=== PATIENT | female | born 1980 | race American Indian/Alaskan Native ===

== ENCOUNTER 2018-02-11 14:59 | Emergency (ER) | payer SELFPAY ==
[2018-02-11] MEDS ORDERED: ZOFRAN ONE (15:29)
--- NOTE | 2018-02-11 15:29 | Emergency Department Report ---
Stated Complaint: VOMITING/FEELING FAINT - HPI History of Present Illness: Ms. Hickey is a 37-year-old with a history of hypertension. After a night of drinking alcohol, she awakened with headache and abdominal pain. She vomited over 15 times. She arrived via EMS. She is concerned about her blood pressure. She was unable to tolerate her antihypertensive medications. I obtained hx from EMS. I initated screening orders. MSE screening note: Focused history and physical exam performed. Due to findings the following was ordered: ED Disposition for MSE Condition: Stable
[2018-02-11] MEDS ORDERED: ZOFRAN IV ONE ×2 (15:42→17:10)
[2018-02-11] MEDS: PROTONIX IV ONE ×2 (16:18→18:06)
[2018-02-11 17:08] VITALS: BP 150/87
[2018-02-11] MEDS ORDERED: MORPHINE IV ONE (17:10)
[2018-02-11] MEDS ORDERED: NACL 0.9% 1000 ML 1,000 ML IV ONE (17:10)
[2018-02-11] MEDS ORDERED: LOMOTIL PO ONE (17:11)
--- NOTE | 2018-02-11 17:17 | Emergency Department Report ---
HPI - General Chief Complaint: Nausea/Vomiting/Diarrhea Time Seen by Provider: 02/11/18 16:43 - HPI HPI: Room 4 The patient is a 37-year-old female presenting with chief complaint of nausea vomiting diarrhea. The patient says she went to sleep last night usual state of health this morning upon waking noticed a frontal headache and suprapubic abdominal pain. Patient states she began having nausea vomiting diarrhea. Patient denies any recent antibiotic use or sick contacts. Patient denies any preceding trauma. Patient denies fever or dysuria. Patient states she is currently on her cycle and this is the normal time. Patient admits to having 2 margaritas last night. The patient gives her pain a score of 10/10 Location: [See above] Duration: One day Quality: Pain Severity: 10/10 Modifying factors: [see above] Context: [see above] Mode of transportation: [not driving] ED Past Medical Hx - Past Medical History Hx Hypertension: Yes - Surgical History Additional Surgical History: tubal ligation - Family History Family history: no significant - Social History Smoking Status: Former Smoker (none 1 month) Substance Use Type: None (denies illicit drug use), Alcohol (occasional) - Medications Home Medications: Home Medications Medication Instructions Recorded Confirmed Last Taken Type Ciprofloxacin HCl [Cipro] 500 mg PO BID #6 tablet 02/11/18 Unknown Rx Promethazine [Phenergan TAB] 25 mg PO Q6HR PRN #20 tab 02/11/18 Unknown Rx Promethazine [Phenergan] 25 mg MN Q6HR PRN #5 supp.rect 02/11/18 Unknown Rx ED Review of Systems ROS: Stated complaint: VOMITING/FEELING FAINT Other details as noted in HPI Constitutional: denies: fever Gastrointestinal: abdominal pain, nausea, vomiting, diarrhea Genitourinary: denies: dysuria, abnormal menses Neurological: headache Physical Exam - Physical Exam Vital Signs: Vital Signs 02/11/18 02/11/18 15:39 17:07 Temperature 97.6 F Pulse Rate 69 68 Respiratory 18 18 Rate Blood Pressure 171/97 150/87 [Right] O2 Sat by Pulse 98 100 Oximetry Physical Exam: GENERAL: The patient is well-developed well-nourished female on a stretcher. In mild discomfort. [] HEENT: Normocephalic. Atraumatic. Extraocular motions are intact. Patient has moist mucous membranes. NECK: Supple. No meningitic signs are noted. Trachea midline CHEST/LUNGS: Clear to auscultation. There is no respiratory distress noted. HEART/CARDIOVASCULAR: Regular. There is no tachycardia. There is no gallop rub or murmur. ABDOMEN: Abdomen is soft, with diffuse tenderness to palpation. Patient has normal bowel sounds. There is no abdominal distention. SKIN: There is no rash. There is no edema. There is no diaphoresis. NEURO: The patient is awake, alert, and oriented. The patient is cooperative. The patient has no focal neurologic deficits. The patient has normal speech. Cranial nerves II through XII grossly intact, no drift MUSCULOSKELETAL: There is no evidence of acute injury. ED Course Vital Signs 02/11/18 02/11/18 15:39 17:07 Temperature 97.6 F Pulse Rate 69 68 Respiratory 18 18 Rate Blood Pressure 171/97 150/87 [Right] O2 Sat by Pulse 98 100 Oximetry ED Medical Decision Making - Lab Data Result diagrams: 02/11/18 16:58 02/11/18 16:58 Laboratory Tests 02/11/18 02/11/18 02/11/18 16:58 16:58 16:58 WBC 8.3 RBC 4.27 Hgb 12.2 Hct 38.2 MCV 89 MCH 29 MCHC 32 RDW 15.5 H Plt Count 235 Lymph % (Auto) 8.3 L Kern % (Auto) 1.8 Eos % (Auto) 0.0 Baso % (Auto) 0.3 Lymph # 0.7 L Kern # 0.2 Eos # 0.0 Baso # 0.0 Seg Neutrophils % 89.6 H Seg Neutrophils # 7.5 Sodium 143 Potassium 3.8 Chloride 103.8 Carbon Dioxide 24 Anion Gap 19 BUN 5 L Creatinine 0.5 L Estimated GFR > 60 BUN/Creatinine Ratio 10 Glucose 97 Calcium 8.4 Total Bilirubin < 0.20 AST 18 ALT 11 Alkaline Phosphatase 54 Total Protein 8.3 H Albumin 4.5 Albumin/Globulin Ratio 1.2 Lipase 16 HCG, Qual Urine Color Urine Turbidity Urine pH Ur Specific [place] Urine Protein Urine Glucose (UA) Urine Ketones Urine Blood Urine Nitrite Urine Bilirubin Urine Urobilinogen Ur Leukocyte Esterase Urine WBC (Auto) Urine RBC (Auto) U Epithel Cells (Auto) Urine Mucus Plasma/Serum Alcohol 0.09 H 02/11/18 02/11/18 16:58 18:22 WBC RBC Hgb Hct MCV MCH MCHC RDW Plt Count Lymph % (Auto) Kern % (Auto) Eos % (Auto) Baso % (Auto) Lymph # Kern # Eos # Baso # Seg Neutrophils % Seg Neutrophils # Sodium Potassium Chloride Carbon Dioxide Anion Gap BUN Creatinine Estimated GFR BUN/Creatinine Ratio Glucose Calcium Total Bilirubin AST ALT Alkaline Phosphatase Total Protein Albumin Albumin/Globulin Ratio Lipase HCG, Qual Negative Urine Color Yellow Urine Turbidity Clear Urine pH 7.0 Ur Specific [place] 1.028 Urine Protein 30 mg/dl Urine Glucose (UA) 50 Urine Ketones Neg Urine Blood Lg Urine Nitrite Neg Urine Bilirubin Neg Urine Urobilinogen < 2.0 Ur Leukocyte Esterase Tr Urine WBC (Auto) 10.0 H Urine RBC (Auto) > 182.0 U Epithel Cells (Auto) 3.0 Urine Mucus Few Plasma/Serum Alcohol - Radiology Data Radiology results: report reviewed (CT head, CT abdomen and pelvis), image reviewed (CT head, CT abdomen and pelvis) [address] [address] Cat Scan Report Signed Patient: WILL PECK MR#: [id number] : 1980 Acct:[id number] Age/Sex: 37 / F ADM Date: 02/11/18 Loc: ED Attending Dr: Ordering Physician: CJ RUBALCAVA MD Date of Service: 02/11/18 Procedure(s): CT head/brain wo con Accession Number(s): [id number] cc: CJ RUBALCAVA MD FINAL REPORT PROCEDURE: CT HEAD/BRAIN WO CON TECHNIQUE: Computerized tomography of the head was performed without contrast material. HISTORY: headache nausea vomiting COMPARISON: No prior studies are available for comparison. FINDINGS: Skull and scalp: Normal. Paranasal sinuses: Normal. Ventricles and subarachnoid spaces: Normal. Cerebrum: No evidence of hemorrhage, acute infarction or mass . Cerebellum and brainstem: No evidence of hemorrhage, acute infarction or mass. Vasculature: Normal. Comments: None. IMPRESSION: Normal Examination Transcribed By: [facility] – [place] Dictated By: ROB BEASLEY Electronically Authenticated By: ROB BEASLEY Signed Date/Time: 02/11/181738 DD/ 38 TD/TT: 02/11/181738 [address] [place] [address] Cat Scan Report Signed Patient: WILL PECK MR#: [id number] : 1980 Acct:[id number] Age/Sex: 37 / F ADM Date: 02/11/18 Loc: ED Attending Dr: Ordering Physician: CJ RUBALCAVA MD Date of Service: 02/11/18 Procedure(s): CT abdomen pelvis w con Accession Number(s): [id number] cc: CJ RUBALCAVA MD FINAL REPORT PROCEDURE: CT ABDOMEN PELVIS W CON TECHNIQUE: Computerized axial tomography of the abdomen and pelvis was performed after the IV injection of iodinated nonionic contrast. HISTORY: diffuse abdominal pain, nausea vomiting COMPARISON: No prior studies are available for comparison. FINDINGS: Liver demonstrates a 7 millimeter x 3 millimeter hypodense lesion segment 7 right lobe in the subdiaphragmatic region. And bilateral adrenal glands are within normal limits. Bilateral kidneys demonstrate normal size without hydronephrosis. Left kidney demonstrates a focal scar in the midpole. Urinary bladder is normally distended with normal outlines. Aorta is of normal caliber. There is no free air in the peritoneal cavity. Minimal degree of free fluid is noted in the pelvic cavity. Gallbladder is unremarkable. Small bowel loops are within normal limits. Appendix is normal. An uncomplicated fat containing supra umbilical hernia is noted measuring 3 centimeters spleen demonstrates multiple hypodense lesions largest measuring above 2 centimeters. There is no evidence of any very splenic fluid. IMPRESSION: Multiple hypodense lesions of spleen are of nonspecific nature and may represent inflammatory versus neoplastic etiology. Doppler evaluation is recommended. A single small hypodense lesion of right lobe liver is of nonspecific nature. Transcribed By: [facility] – [place], [place] Dictated By: ROB BEASLEY Electronically Authenticated By: ROB BEASLEY Signed Date/Time: 02/11/181831 DD/ 31 TD/TT: 02/11/181831 - Differential Diagnosis gastroenteritis, ICH, partial small bowel obstruction Critical care attestation.: If time is entered above; I have spent that time in minutes in the direct care of this critically ill patient, excluding procedure time. ED Disposition Clinical Impression: Alcohol intoxication, Splenic lesion, UTI (urinary tract infection) Disposition: DC-01 TO HOME OR SELFCARE Is pt being admited?: No Does the pt Need Aspirin: No Condition: Stable Instructions: Alcohol Intoxication (ED), At-Risk Alcohol Use (ED) Additional Instructions: Return to the emergency department immediately should you develop worsening symptoms, fever, inability to tolerate food or liquid or any other concerns. Prescriptions: Ciprofloxacin HCl [Cipro] 500 mg PO BID #6 tablet Promethazine [Phenergan TAB] 25 mg PO Q6HR PRN #20 tab PRN Reason: Nausea Promethazine [Phenergan] 25 mg MN Q6HR PRN #5 supp.rect PRN Reason: Vomiting Referrals: RUBI RUTLEDGE MD [Staff Physician] - 3-5 Days (Dr. Rutledge is a nut grinder. Please follow-up with him and your primary physician for further evaluation of your spleen) VERA ESCOBAR MD [Primary Care Provider] - 3-5 Days (Dr. Whitney is a primary physician. Please follow-up with him for further evaluation) Time of Disposition: 18:55
[2018-02-11] MEDS ORDERED: NACL ONE (17:20)
[2018-02-11 17:24] LABS: Basophils % (Auto) 0.3 % (0.0-1.8); Hematocrit 38.2 % (30.3-42.9); Hemoglobin 12.2 gm/dl (10.1-14.3); Lymphocytes # (Auto) 0.7 K/mm3 (1.2-5.4); Lymphocytes % (Auto) 8.3 % (13.4-35.0); Mean Corpuscular HGB Conc 32 % (30-34); Mean Corpuscular Hemoglobin 29 pg (28-32); Mean Corpuscular Volume 89 fl (79-97); Monocytes # (Auto) 0.2 K/mm3 (0.0-0.8); Monocytes % (Auto) 1.8 % (0.0-7.3); Platelet Count 235 K/mm3 (140-440); Red Blood Count 4.27 M/mm3 (3.65-5.03); Red Cell Distribution Width 15.5 % (13.2-15.2)
--- NOTE | 2018-02-11 17:44 | Cat Scan Report ---
FINAL REPORT PROCEDURE: CT HEAD/BRAIN WO CON TECHNIQUE: Computerized tomography of the head was performed without contrast material. HISTORY: headache nausea vomiting COMPARISON: No prior studies are available for comparison. FINDINGS: Skull and scalp: Normal. Paranasal sinuses: Normal. Ventricles and subarachnoid spaces: Normal. Cerebrum: No evidence of hemorrhage, acute infarction or mass . Cerebellum and brainstem: No evidence of hemorrhage, acute infarction or mass. Vasculature: Normal. Comments: None. IMPRESSION: Normal Examination
[2018-02-11 17:53] LABS: Alanine Aminotransferase 11 units/L (7-56); Albumin 4.5 g/dL (3.9-5); BUN/Creatinine Ratio 10; Blood Urea Nitrogen 5 mg/dL (7-17); Calcium 8.4 mg/dL (8.4-10.2); Hemolysis Index 8; Lipase 16 units/L (13-60)
--- NOTE | 2018-02-11 18:37 | Cat Scan Report ---
FINAL REPORT PROCEDURE: CT ABDOMEN PELVIS W CON TECHNIQUE: Computerized axial tomography of the abdomen and pelvis was performed after the IV injection of iodinated nonionic contrast. HISTORY: diffuse abdominal pain, nausea vomiting COMPARISON: No prior studies are available for comparison. FINDINGS: Liver demonstrates a 7 millimeter x 3 millimeter hypodense lesion segment 7 right lobe in the subdiaphragmatic region. And bilateral adrenal glands are within normal limits. Bilateral kidneys demonstrate normal size without hydronephrosis. Left kidney demonstrates a focal scar in the midpole. Urinary bladder is normally distended with normal outlines. Aorta is of normal caliber. There is no free air in the peritoneal cavity. Minimal degree of free fluid is noted in the pelvic cavity. Gallbladder is unremarkable. Small bowel loops are within normal limits. Appendix is normal. An uncomplicated fat containing supra umbilical hernia is noted measuring 3 centimeters spleen demonstrates multiple hypodense lesions largest measuring above 2 centimeters. There is no evidence of any very splenic fluid. IMPRESSION: Multiple hypodense lesions of spleen are of nonspecific nature and may represent inflammatory versus neoplastic etiology. Doppler evaluation is recommended. A single small hypodense lesion of right lobe liver is of nonspecific nature.
[2018-02-11 18:39] LABS: Bilirubin,Urine NEG (Negative); Blood,Urine LG (Negative); Color,Urine Yellow (Yellow); Mucus,Urine FEW /HPF; Urobilinogen,Urine < 2.0 mg/dL (<2.0)
[2018-02-11 18:40] LABS: RBC,Urine > 182.0 /HPF (0.0-6.0)
== END 2018-02-11 19:19 | disposition home or self-care (01) ==
LOC: ED 14:59
DX: N39.0 Urinary tract infection, site not specified (principal); D73.89 Other diseases of spleen; I10 Essential (primary) hypertension; F10.129 Alcohol abuse with intoxication, unspecified; Z91.018 Allergy to other foods; Z98.51 Tubal ligation status; Z87.891 Personal history of nicotine dependence
CPT/HCPCS: 36415; 70450; 74177; 80053; 81001; 83690; 84703; 85025; 96361; 96374; 96375; 96376; 99284; C9113; G0480; J2270; J2405; J7030; Q9967; 80320

== ENCOUNTER 2020-11-03 09:58 | Emergency (ER) | payer SELFPAY ==
--- NOTE | 2020-11-03 11:27 | Emergency Department Report ---
ED ENT HPI - General Chief complaint: Sore Throat Stated complaint: SORE THROAT Time Seen by Provider: 11/03/20 10:41 Source: patient Mode of arrival: Ambulatory Limitations: No Limitations - History of Present Illness Initial comments: There is a pleasant 40-year-old female presents emerged department chief complaint of sore throat over the past 2 days. Patient reports she was concerned because her boyfriend was having some painful bumps in his groin and she was concerned she may have gonorrhea. She states she has noticed some white plaque on the tonsils as well as some black and red discoloration. She reports pain is 7 out of 10 aggravated by swallowing with associated swelling of the anterior neck and pain. She denies any known past medical history other than hypertension, denies any current medication use or known allergies to medications. - Related Data Previous Rx's Medication Instructions Recorded Last Taken Type Ciprofloxacin HCl [Cipro] 500 mg PO BID #6 tablet 02/11/18 Unknown Rx Promethazine [Phenergan TAB] 25 mg PO Q6HR PRN #20 tab 02/11/18 Unknown Rx Promethazine [Phenergan] 25 mg OR Q6HR PRN #5 supp.rect 02/11/18 Unknown Rx Amoxicillin [Trimox CAP] 500 mg PO Q8H #30 capsule 11/03/20 Unknown Rx Ibuprofen [Motrin 800 MG tab] 800 mg PO Q8HR #30 tablet 11/03/20 Unknown Rx hydroCHLOROthiazide [HCTZ] 25 mg PO QDAY #30 tablet 11/03/20 Unknown Rx lisinopriL [Zestril TAB] 10 mg PO QDAY #30 tablet 11/03/20 Unknown Rx Allergies Allergy/AdvReac Type Severity Reaction Status Date / Time candy Allergy Unknown Uncoded 11/03/20 10:03 country time lemonade Allergy Swelling Uncoded 11/03/20 10:03 ED Dental HPI - General Chief complaint: Sore Throat Stated complaint: SORE THROAT Time Seen by Provider: 11/03/20 10:41 Source: patient Mode of arrival: Ambulatory Limitations: No Limitations - Related Data Previous Rx's Medication Instructions Recorded Last Taken Type Ciprofloxacin HCl [Cipro] 500 mg PO BID #6 tablet 02/11/18 Unknown Rx Promethazine [Phenergan TAB] 25 mg PO Q6HR PRN #20 tab 03/25/18 Unknown Rx Promethazine [Phenergan] 25 mg OR Q6HR PRN #5 supp.rect 02/11/18 Unknown Rx Amoxicillin [Trimox CAP] 500 mg PO Q8H #30 capsule 11/03/20 Unknown Rx Ibuprofen [Motrin 800 MG tab] 800 mg PO Q8HR #30 tablet 11/03/20 Unknown Rx hydroCHLOROthiazide [HCTZ] 25 mg PO QDAY #30 tablet 11/03/20 Unknown Rx lisinopriL [Zestril TAB] 10 mg PO QDAY #30 tablet 11/03/20 Unknown Rx Allergies Allergy/AdvReac Type Severity Reaction Status Date / Time candy Allergy Unknown Uncoded 11/03/20 10:03 country time lemonade Allergy Swelling Uncoded 11/03/20 10:03 ED Review of Systems ROS: Stated complaint: SORE THROAT Other details as noted in HPI Constitutional: no symptoms reported. denies: chills, fever Eyes: denies: eye pain, eye discharge, vision change ENT: throat pain. denies: ear pain Respiratory: denies: cough, shortness of breath, wheezing Cardiovascular: denies: chest pain, palpitations Endocrine: no symptoms reported Gastrointestinal: denies: abdominal pain, nausea, diarrhea Genitourinary: denies: urgency, dysuria, discharge Musculoskeletal: denies: back pain, joint swelling, arthralgia Skin: denies: rash, lesions Neurological: denies: headache, weakness, paresthesias Psychiatric: denies: anxiety, depression Hematological/Lymphatic: denies: easy bleeding, easy bruising ED Past Medical Hx - Past Medical History Previous Medical History?: Yes Hx Hypertension: Yes - Surgical History Past Surgical History?: Yes Additional Surgical History: tubal ligation - Social History Smoking Status: Former Smoker (none 1 month) Substance Use Type: None (denies illicit drug use), Alcohol (occasional) - Medications Home Medications: Home Medications Medication Instructions Recorded Confirmed Last Taken Type Ciprofloxacin HCl [Cipro] 500 mg PO BID #6 tablet 02/11/18 Unknown Rx Promethazine [Phenergan TAB] 25 mg PO Q6HR PRN #20 tab 02/11/18 Unknown Rx Promethazine [Phenergan] 25 mg OR Q6HR PRN #5 supp.rect 02/11/18 Unknown Rx Amoxicillin [Trimox CAP] 500 mg PO Q8H #30 capsule 11/03/20 Unknown Rx Ibuprofen [Motrin 800 MG tab] 800 mg PO Q8HR #30 tablet 11/03/20 Unknown Rx hydroCHLOROthiazide [HCTZ] 25 mg PO QDAY #30 tablet 11/03/20 Unknown Rx lisinopriL [Zestril TAB] 10 mg PO QDAY #30 tablet 11/03/20 Unknown Rx ED Physical Exam - General Limitations: No Limitations General appearance: alert, in no apparent distress - Head Head exam: Present: atraumatic, normocephalic - Eye Eye exam: Present: normal appearance, PERRL, EOMI Pupils: Present: normal accommodation - ENT ENT exam: Present: normal exam, mucous membranes moist, TM's normal bilaterally. Absent: normal orophraynx (There is plaque to the bilateral tonsils worse on the left. No peritonsillar bulging, retropharyngeal bulging or to elevation. No drooling or dysphonia. The airway is widely patent. No tongue elevation tender anterior cervical lymphadenopathy) - Neck Neck exam: Present: normal inspection, full ROM, lymphadenopathy. Absent: tenderness, meningismus - Respiratory Respiratory exam: Present: normal lung sounds bilaterally. Absent: respiratory distress, wheezes, rales, rhonchi, stridor - Cardiovascular Cardiovascular Exam: Present: regular rate, normal rhythm, normal heart sounds. Absent: systolic murmur, diastolic murmur, rubs, gallop - GI/Abdominal GI/Abdominal exam: Present: soft, normal bowel sounds. Absent: distended, tenderness, guarding, rebound, rigid - Extremities Exam Extremities exam: Present: normal inspection, full ROM, normal capillary refill. Absent: tenderness, calf tenderness - Back Exam Back exam: Present: normal inspection, full ROM. Absent: tenderness, CVA tenderness (R), CVA tenderness (L) - Neurological Exam Neurological exam: Present: alert, oriented X3, CN II-XII intact, normal gait - Psychiatric Psychiatric exam: Present: normal affect, normal mood - Skin Skin exam: Present: warm, dry, intact, normal color. Absent: rash ED Course Vital Signs 11/03/20 11/03/20 10:03 13:03 Temperature 98.8 F Pulse Rate 95 H 99 H Respiratory 20 Rate Blood Pressure 148/105 188/117 [Right] O2 Sat by Pulse 98 Oximetry - Reevaluation(s) Reevaluation #1: 11/03/20 11:27 Patient nontoxic in no acute distress. Vital signs are stable. I did perform a strep swab and send a Monospot test off. Patient's airway is patent no sign of abscess or Kiran. ED Medical Decision Making - Medical Decision Making Patient nontoxic in no acute distress. Monospot was negative. Patient Centor criteria was positive 3 of 4 for strep and I will empirically treat her. We did order a strep swab collected and sent to lab however it was lost in transit. The patient was agreeable this plan. We will treat her with anti- inflammatories, amoxicillin and Magic mouthwash and recommended outpatient follow-up with her primary care doctor. There were no complicating features including no peritonsillar bulging, retropharyngeal bulging or television, no drooling or dysphonia. And she was instructed if she develops any of the signs or symptoms to return to the emergency department immediately. Patient verbalized understand the diagnosis, treatment plan and follow-up instructions and all of her questions were answered. - Differential Diagnosis Strep throat, mononucleosis, viral pharyngitis Critical care attestation.: If time is entered above; I have spent that time in minutes in the direct care of this critically ill patient, excluding procedure time. ED Disposition Clinical Impression: Acute tonsillitis Qualifiers: Pharyngitis/tonsillitis etiology: streptococcus Streptococcal tonsillitis recurrence: non-recurrent Qualified Code(s): J03.00 - Acute streptococcal tonsillitis, unspecified Disposition: DC-01 TO HOME OR SELFCARE Is pt being admited?: No Condition: Stable Instructions: Tonsillitis, [id number] Prescriptions: hydroCHLOROthiazide [HCTZ] 25 mg PO QDAY #30 tablet Ibuprofen [Motrin 800 MG tab] 800 mg PO Q8HR #30 tablet Amoxicillin [Trimox CAP] 500 mg PO Q8H #30 capsule lisinopriL [Zestril TAB] 10 mg PO QDAY #30 tablet Referrals: TARA JAMESON MD [Primary Care Provider] - 3-5 Days ARABELLA MORENO MD [Staff Physician] - 3-5 Days Forms: Work/School Release Form(ED) Time of Disposition: 13:29
[2020-11-03] MEDS ORDERED: IBUPROFEN 800 MG TAB PO ONE (12:48)
[2020-11-03 13:54] VITALS: BP 172/92
== END 2020-11-03 13:54 | disposition home or self-care (01) ==
LOC: ED 09:58
DX: J03.90 Acute tonsillitis, unspecified (principal); I10 Essential (primary) hypertension; Z79.899 Other long term (current) drug therapy; Z88.8 Allergy status to other drugs, medicaments and biological substances; Z87.891 Personal history of nicotine dependence; Z98.51 Tubal ligation status
CPT/HCPCS: 36415; 86308; 87116; 87430